=== PATIENT | male | born 1945 | race Caucasian/White ===

== ENCOUNTER → 2020-03-08 | Outpatient (CLI) | payer MEDICARE, OTHER ==
[~2020-03-08] MED LIST: PREG100C PO
== END | disposition home or self-care (01) ==
LOC: Rad HDHVI 15:58
PROVIDERS: ATTEND Internal Medicine Cardiovascular Disease
DX: I10 Essential (primary) hypertension (principal); R06.02 Shortness of breath
CPT/HCPCS: 93306

== ENCOUNTER → 2020-03-18 | Outpatient (CLI) | payer MEDICARE, OTHER ==
[~2020-03-18] VITALS: Ht 180.3 cm; Wt 90.7 kg
[~2020-03-18] MED LIST changes: +ADENOSINE 76 MG in GIVE UN-DILUTED 0 ML IV ONE; +ADENOSINE 90 MG/30 ML INJ IV ONE
== END | disposition home or self-care (01) ==
LOC: Rad HDHVI 07:58
PROVIDERS: ATTEND Internal Medicine Cardiovascular Disease
DX: I10 Essential (primary) hypertension (principal); I63.9 Cerebral infarction, unspecified; E78.5 Hyperlipidemia, unspecified; R00.2 Palpitations; Z82.49 Family history of ischemic heart disease and other diseases of the circulatory system
CPT/HCPCS: 78452; 93005; 96374; 96375; A9500; J0153

== ENCOUNTER → 2020-04-22 | Outpatient (CLI) | payer MEDICARE, OTHER ==
[~2020-04-22] MED LIST changes: -ADENOSINE 76 MG in GIVE UN-DILUTED 0 ML IV ONE; -ADENOSINE 90 MG/30 ML INJ IV ONE; +CYCL10TA6 PO; +FEXO-39 PO; +IBUP600T27 PO; +TADA5TAB11 PO; +TOLT2CAP7 PO
[2020-04-22 09:35] VITALS: BP 117/84
--- NOTE | 2020-04-22 09:35 | NUR ---
PT. TO CLINIC FOR PRE OP EKG AFTER LABS AND CXR DONE. PT. TO GO TO [facility] AFTER THIS FOR FOLLOW UP INSTRUCTIONS.
--- NOTE | 2020-04-22 09:50 | NUR ---
EKG SHOWS SR AT 69 WITH OCC. PAC. RESULTS TO MD FOR PREOP CLEARANCE.
[2020-04-22 10:00] VITALS: BP 115/82
--- NOTE | 2020-04-22 10:00 | NUR ---
Pre-Op Discharge Summary: See e-MAR for any medications given for this visit. Pre-op orders received and carried out per MD of EKG, LABS and chest xrays. Patient given a copy of EKG with instructions to go to [facility] out patient for further follow up care.
[2020-04-22 12:41] LABS: Basophils # (auto) 0 10 ^3/uL (0-0.2); Basophils % (auto) 0.4 % (0.0-2.0); Eosinophils # (auto) 0.1 10 ^3/uL (0-0.8); Eosinophils % (auto) 2.2 % (0.0-7.0); Hematocrit 44.7 % (41.0-53.0); Hemoglobin 15.3 g/dL (13.5-17.5); Lymphocytes # (auto) 1.8 10 ^3/uL (0.4-5.4); Lymphocytes % (auto) 25.9 % (10.0-50.0); Mean Corpuscular Hemoglobin 31.7 pg (28.0-32.0); Mean Corpuscular Hgb Conc. 34.2 g/dL (32.0-36.0); Mean Corpuscular Volume 92.6 fL (80.0-100.0); Monocytes # (auto) 0.5 10 ^3/uL (0-1.3); Monocytes % (auto) 7.4 % (0.0-12.0); Neutrophils # (auto) 4.4 10 ^3/uL (1.6-8.6); Neutrophils % (auto) 64.1 % (37.0-80.0); Nucleated Red Blood Cells % 0.1 %; Platelet Count (auto) 253 10^3/uL (140-450); Red Blood Cells 4.83 10^6/uL (4.5-5.90); Red Cell Distribution Width 13.9 % (11.8-14.3); White Blood Cell 6.9 10^3/uL (4.4-10.8)
[2020-04-22 12:46] LABS: Potassium 4.2 mmol/L (3.5-5.1)
[2020-04-22 12:53] LABS: INR 0.97 (0.9-1.15); Partial Thromboplastin Time 25.1 sec (23.0-31.2)
[2020-04-22 13:36] LABS: Calcium 8.7 mg/dL (8.5-10.1)
== END | disposition home or self-care (01) ==
LOC: Rad HDHVI 09:18
PROVIDERS: ATTEND Internal Medicine Cardiovascular Disease
DX: Z01.812 Encounter for preprocedural laboratory examination (principal); I51.7 Cardiomegaly
CPT/HCPCS: 36415; 71046; 80048; 85025; 85610; 85730; 93005; G0463

== ENCOUNTER 2020-04-25 07:56 | Inpatient (IN) | payer MEDICARE, OTHER ==
[~2020-04-25] VITALS: Ht 181.6 cm; Wt 93.1 kg
[~2020-04-25 07:56] MED LIST changes: -PREG100C PO
[2020-04-25] MEDS ORDERED: IOHEXOL 350 MG/ML 100ML IJ ONE (08:53)
[2020-04-25] MEDS ORDERED: LIDOCAINE 2%HCL (LOCAL ANESTH.) INJ 20ML MDV ONE (08:53)
[2020-04-25] MEDS ORDERED: MIDAZOLAM HCL 1MG/1ML-2 ML VIAL ONE (09:03)
[2020-04-25] MEDS ORDERED: fentaNYL CITRATE 100 MCG/2 ML VL ONE (09:03)
[2020-04-25] MEDS ORDERED: ANGIOMAX 250 MG VIAL IV ONE ×2 (09:03→10:36)
[2020-04-25] MEDS ORDERED: SODIUM CHL 0.9% 0 ML ONE (09:04)
[2020-04-25] MEDS ORDERED: SODIUM CHL 0.9% 50 ML ONE (10:36)
[2020-04-25] MEDS ORDERED: TICAGRELOR 90 MG TAB ONE (10:53)
[2020-04-25] MEDS ORDERED: ASPirin 325 MG TAB ONE (10:53)
[2020-04-25] MEDS ORDERED: HYDROcodone-ACET 5/325MG TAB PO PRN (11:15)
[2020-04-25] MEDS ORDERED: NITROGLYCERIN 0.4 MG SL TAB SL PRN (11:15)
[2020-04-25] MEDS ORDERED: MORPHINE SULF INJ 2 MG/ML SYRINGE 1ML IV PRN (11:15)
[2020-04-25] MEDS ORDERED: CYCLOBENZAPRINE HCL 10 MG TAB PO PRN (11:15)
[2020-04-25] MEDS ORDERED: ONDANSETRON HCL 4 MG/2 ML VIAL IV PRN (11:15)
[2020-04-25] MEDS ORDERED: ACETAMINOPHEN 500 MG TAB PO PRN (11:15)
--- NOTE | 2020-04-25 16:40 | NUR ---
Telemetry admit from [employer] HUSEYIN LOZA admitted to Telemetry unit after SBAR received. Patient oriented to MONSERRAT BARNHART, RN primary RN, unit, room, bed, and unit policies regarding patient care and visiting hours. Patient now on continuous telemetry monitoring, tele box #[id number] and telemetry reading on arrival to unit is SR. Patient S/P L heart cath with 2 stents placed. Access obtained through right groin. Dressing CDI no, hemorrhage or hematoma noted. Patient weighed by bedscale and encouraged to call if they need something. All questions and concerns addressed, patient verbalized understanding.
[2020-04-25 17:06] VITALS: BP 152/86
--- NOTE | 2020-04-25 19:00 | NUR ---
Rash Patient complaining of rash on upper body and chest. Some redness noted, per patient he is feeling itchy. Paged MD Alberto to make aware and new orders. Will cont to monitor patient.
[2020-04-25] MEDS ORDERED: methylPREDNISolone SOD SUCC 125 MG/2 ML VL IV ONE (19:30)
--- NOTE | 2020-04-25 19:30 | NUR ---
assumed care, pt. awake, dressing on rt. groin dry and intact, pt. c/o itchiness and redness at the back and chest, paged dr. Alberto, made ordered and carried out, to keep monitor.
[2020-04-25] MEDS: diphenhdrAMINE HCL 50 MG/1 ML VL IV PRN (20:21)
[2020-04-25] MEDS: TICAGRELOR 90 MG TAB PO SCH (21:17)
[2020-04-25 22:00] VITALS: BP 141/77
[2020-04-26] MEDS: diphenhdrAMINE HCL 50 MG/1 ML VL IV PRN ×2 (02:07→11:00)
[2020-04-26 05:00] VITALS: BP 136/84
[2020-04-26 09:00] VITALS: BP 131/72
[2020-04-26] MEDS: TICAGRELOR 90 MG TAB PO SCH (10:00)
[2020-04-26] MEDS ORDERED: IBUPROFEN 600 MG TAB PO SCH (10:00)
[2020-04-26] MEDS ORDERED: ASPirin-EC 81 mg tab PO SCH (10:00)
[2020-04-26] MEDS ORDERED: FEXOFENADINE HCL 60 MG TAB PO SCH (10:00)
[2020-04-26] MEDS ORDERED: TOLTERODINE TARTRATE 4 MG PO SCH (10:00)
--- NOTE | 2020-04-26 11:22 | NUR ---
entered room pt a/o x's 4. denies any pain. rt groin dressing c/d/i, no bleeding or bruising noted. ambulated without difficulty. c/o itching face, back et chest red. denies any breathing difficulty. no distress noted. iv Benadryl given. resting at this time. offers no other needs.
[2020-04-26] MEDS ORDERED: predniSONE 20 MG TAB PO ONE (11:45)
--- NOTE | 2020-04-26 13:59 | NUR ---
Discharge instructions given as ordered. Encourage to follow up with PMD as instructed. All questions and concerns addressed. Patient verbalized understanding. Medication reconciliation form completed and copy given to patient. IV removed with catheter intact, pressure dressing applied, Telemetry unit returned to ICU. Patient taken to vehicle via wheelchair with all personal belongings, accompanied by staff and family member. No distress noted at time of departure. notified dr. harry of itching et red face, prednisone was ordered et given, still of to be discharged, no distress or breathing difficulties noted. brilanta et prednisone called into [facility] per dr. harry orders.
--- NOTE | 2020-04-26 16:35 | NUR ---
notified dr. harry of continuous itching et redness. Lindsay colon'd et plavix replaced. called into [facility].
== END 2020-04-26 13:38 | disposition home or self-care (01) | DRG 247 ==
LOC: CATH 07:56 → TELE 07:57 → TELE-WESTW 16:40
PROVIDERS: ADMIT Internal Medicine Cardiovascular Disease; ATTEND Internal Medicine Cardiovascular Disease
PROC: B2111ZZ Fluoroscopy of Multiple Coronary Arteries using Low Osmolar Contrast (ICD-10-PCS; principal; 2020-04-25)
PROC: 027135Z Dilation of Coronary Artery, Two Arteries with Two Drug-eluting Intraluminal Devices, Percutaneous Approach (ICD-10-PCS; 2020-04-25)
PROC: 4A033BC Measurement of Arterial Pressure, Coronary, Percutaneous Approach (ICD-10-PCS; 2020-04-25)
PROC: B241ZZ3 Ultrasonography of Multiple Coronary Arteries, Intravascular (ICD-10-PCS; 2020-04-25)
DX: I25.10 Atherosclerotic heart disease of native coronary artery without angina pectoris (principal); I10 Essential (primary) hypertension; E78.5 Hyperlipidemia, unspecified; Z96.653 Presence of artificial knee joint, bilateral; Z20.828 Contact with and (suspected) exposure to other viral communicable diseases; Z79.82 Long term (current) use of aspirin; Z82.49 Family history of ischemic heart disease and other diseases of the circulatory system; Z87.891 Personal history of nicotine dependence; Z98.61 Coronary angioplasty status; Z91.011 Allergy to milk products; Z91.013 Allergy to seafood
CPT/HCPCS: 36415; 71046; 80048; 85025; 85610; 85730; 92928; 92978; 92979; 93005; 93454; 93571; 99152; 99153; C1874; G0378; G0463; J2250

== ENCOUNTER 2020-04-29 15:21 | Inpatient (IN) | payer MEDICARE, OTHER ==
[~2020-04-29] VITALS: Ht 180.3 cm; Wt 93.0 kg
[2020-04-29] MEDS ORDERED: ASPirin 81 mg TAB PO ONE (15:30)
[2020-04-29 17:24] LABS: Basophils # (auto) 0 10 ^3/uL (0-0.2); Eosinophils # (auto) 0 10 ^3/uL (0-0.8); Hematocrit 45.8 % (41.0-53.0); Hemoglobin 15.3 g/dL (13.5-17.5); Lymphocytes # (auto) 0.9 10 ^3/uL (0.4-5.4); Lymphocytes % (auto) 10.3 % (10.0-50.0); Mean Corpuscular Hgb Conc. 33.4 g/dL (32.0-36.0); Mean Corpuscular Volume 92.7 fL (80.0-100.0); Monocytes # (auto) 0.4 10 ^3/uL (0-1.3); Monocytes % (auto) 5.2 % (0.0-12.0); Neutrophils % (auto) 84.5 % (37.0-80.0); Platelet Count (auto) 261 10^3/uL (140-450); Red Blood Cells 4.95 10^6/uL (4.5-5.90); Red Cell Distribution Width 13.8 % (11.8-14.3); White Blood Cell 8.3 10^3/uL (4.4-10.8)
[2020-04-29 17:32] LABS: INR 0.98 (0.9-1.15); Partial Thromboplastin Time 24.4 sec (23.0-31.2)
[2020-04-29 18:13] LABS: BUN/Creatinine Ratio 21.8; Potassium 4.2 mmol/L (3.5-5.1)
[2020-04-29 18:14] LABS: Bilirubin, Total 0.9 mg/dL (0.2-1.0); Calcium 8.4 mg/dL (8.5-10.1)
[2020-04-29 18:15] LABS: Total Protein 7.5 g/dL (6.4-8.2)
[2020-04-29] MEDS ORDERED: ENOXAPARIN SOD 100 MG/1 ML SYRINGE SC ONE (18:30)
[2020-04-29] MEDS ORDERED: CYCLOBENZAPRINE HCL 10 MG TAB PO PRN (21:15)
[2020-04-29] MEDS ORDERED: MORPHINE SULF INJ 2 MG/ML SYRINGE 1ML IV PRN (21:15)
[2020-04-29] MEDS ORDERED: CLOPIDOGREL BISULFATE 75 MG TAB PO ONE (21:15)
[2020-04-29] MEDS ORDERED: NITROGLYCERIN 0.4 MG SL TAB SL PRN (21:15)
[2020-04-29] MEDS ORDERED: ENOXAPARIN SOD 60 MG/0.6 ML SYRINGE SC SCH (22:00)
[2020-04-30] MEDS ORDERED: NTG 0.1MG/HR TOPICAL PATCH TD ONE (10:00)
[2020-04-30] MEDS: TOLTERODINE TARTRATE 1 MG TAB PO SCH ×2 (11:05→22:07)
[2020-04-30] MEDS: ASPirin 81 mg TAB PO SCH (11:05)
[2020-04-30] MEDS: ENOXAPARIN SOD 60 MG/0.6 ML SYRINGE SC SCH (11:06)
--- NOTE | 2020-04-30 23:48 | NUR ---
Telemetry admit from ER HUSEYIN LOZA admitted to Telemetry unit after SBAR received. Patient oriented to Nancy avendano RN, unit, room, bed, and unit policies regarding patient care and visiting hours. Patient now on continuous telemetry monitoring, tele box # [id number] and telemetry reading on arrival to unit is SR 73. Patient placed on bedside oxygen, weighed by bed scale and encouraged to call if they need something. All questions and concerns addressed, patient verbalized understanding. Note: Came per wheelchair awake alert oriented x 4not in respiratory distress, placed in the bed comfortably, vital signs checked routine admission done.
[2020-05-01] VITALS: BP 127/74
[2020-05-01] MEDS ORDERED: CLOP75TA28 PO (01:14)
[2020-05-01] MEDS ORDERED: PRED20TA2 PO (01:14)
--- NOTE | 2020-05-01 01:46 | NUR ---
Paged Dr. Alberto for headache med. as needed, waiting reply.
--- NOTE | 2020-05-01 03:13 | NUR ---
returned call Ann Goddard. returned call, updated on patient status and reason for call, orders received of Ibuprofen 600mg.T.I.D. Continue care.
[2020-05-01 05:00] VITALS: BP 140/87
[2020-05-01] MEDS: IBUPROFEN 600 MG TAB PO SCH ×2 (06:37→14:00)
--- NOTE | 2020-05-01 07:40 | NUR ---
Opening Shift Note: Assumed care of patient, awake and alert. No S/S of distress/SOB or pain. Bed in lowest locked position, side rails up x 2, call light within reach. Patient instructed on POC and to call for assist PRN, will continue to monitor for changes Q1hr and PRN.
--- NOTE | 2020-05-01 07:50 | NUR ---
Report given to Karie Cheng, patient is resting no distress.
[2020-05-01 09:00] VITALS: BP 124/72
[2020-05-01] MEDS: ENOXAPARIN SOD 60 MG/0.6 ML SYRINGE SC SCH (09:36)
[2020-05-01] MEDS: ASPirin 81 mg TAB PO SCH (09:36)
[2020-05-01] MEDS: TOLTERODINE TARTRATE 1 MG TAB PO SCH (11:49)
[2020-05-01 13:00] VITALS: BP 131/69
[2020-05-01 17:00] VITALS: BP 142/76
[2020-05-01 17:04] VITALS: BP 130/71
--- NOTE | 2020-05-01 17:58 | NUR ---
IV removal: IV DC'd with clean sterile technique, catheter fully intact. Pressure dressing applied to site. Patient tolerated well.
== END 2020-05-01 18:15 | disposition home or self-care (01) | DRG 281 ==
LOC: ER 15:21 → TELE 21:01 → TELE-WESTW 04-30 23:19
PROVIDERS: ADMIT Internal Medicine Cardiovascular Disease; ATTEND Internal Medicine Cardiovascular Disease
DX: I21.4 Non-ST elevation (NSTEMI) myocardial infarction (principal); I50.22 Chronic systolic (congestive) heart failure; E78.5 Hyperlipidemia, unspecified; Z96.653 Presence of artificial knee joint, bilateral; I11.0 Hypertensive heart disease with heart failure; I25.10 Atherosclerotic heart disease of native coronary artery without angina pectoris; Z82.49 Family history of ischemic heart disease and other diseases of the circulatory system; Z98.61 Coronary angioplasty status; Z87.891 Personal history of nicotine dependence; Z88.8 Allergy status to other drugs, medicaments and biological substances; Z91.013 Allergy to seafood
CPT/HCPCS: 36415; 71045; 80053; 84484; 85025; 85610; 85730; 87081; 93306; 96372; G0378

== ENCOUNTER → 2020-05-13 | Outpatient (CLI) | payer MEDICARE, OTHER ==
[~2020-05-13] VITALS: Ht 181.6 cm; Wt 94.3 kg
[~2020-05-13] MED LIST changes: +ADENOSINE 79 MG in GIVE UN-DILUTED 0 ML IV ONE; +ADENOSINE 90 MG/30 ML INJ IV ONE; +CLOP75TA28 PO; -FEXO-39 PO; -IBUP600T27 PO; +PRED20TA2 PO; -TADA5TAB11 PO
== END | disposition home or self-care (01) ==
LOC: Rad HDHVI 09:24
PROVIDERS: ATTEND Internal Medicine Cardiovascular Disease
DX: I25.10 Atherosclerotic heart disease of native coronary artery without angina pectoris (principal); I10 Essential (primary) hypertension; E78.00 Pure hypercholesterolemia, unspecified
CPT/HCPCS: 78452; 93005; 96374; 96375; A9500; J0153